=== PATIENT | female | born 1945 | race Caucasian/White ===

== ENCOUNTER 2017-12-12 18:02 | Emergency (ER) | payer OTHER ==
[~2017-12-12] VITALS: Ht 157.5 cm; Wt 97.0 kg
[~2017-12-12 18:02] MED LIST: ADULT LOW DOSE81 M1 PO; CALTRATE 6001 TABLE1 PO; CENTRUM SILVER1 EAC3 PO; CRESTOR10 MG PO; DIOVAN HCT 11 TABLET PO; FISH OIL SOFTG1 EAC2 PO; KEFLEX500 MG PO; LOW DOSE ASPIRI81 M1 PO; NASACORT AQ16.5 GM BOTH NARES; NORVASC5 MG PO; PREMPRO 0.31 TABLET PO; PULMICORT FLE180 MCG IH; PULMICORT FLEX90 MCG IH; PULMICORT180 MICROG; TRIAMCINOLONE16.5 GM; VALSARTAN-HCTZ1 EAC1 PO; VENTOLIN HFA18 GM IH; VITAMIN D400 UNI4 PO
[2017-12-12 20:15] LABS: HEMATOCRIT 38.3 % (36.0-46.0); MCH 31.7 PG (29.0-34.0); MCHC 33.9 G/DL (30.0-36.0); MCV 93.4 FL (83-99); PLATELET COUNT 276 K/uL (156-360); RBC DIS.WIDTH-CV 12.7 % (11.8-14.6); RBC DIS.WIDTH-SD 43.7 % (39-53); WHITE BLOOD COUNT 10.8 K/uL (4.1-10.2)
[2017-12-12 20:36] LABS: TROP-I INTERPRETATION NEGATIVE; TROPONIN-I < 0.01 ng/mL (0.0-0.30)
[2017-12-12 20:43] LABS: CHLORIDE 99 MEQ/L (99-109); CREATININE 0.7 MG/DL (0.6-1.3); GFR ESTIMATE (CALCULATED) > 59 mL/min/; GLUCOSE 112 mg/dL (70-99); POTASSIUM 3.5 MEQ/L (3.7-5.4); SODIUM 135 MEQ/L (136-147); UREA NITROGEN (BUN) 11 mg/dL (9-23)
[2017-12-12] MEDS ORDERED: ULTRAM50 MG PO (21:31)
[2017-12-12 22:56] LABS: APPEARANCE CLOUDY ((CLEAR)); BILIRUBIN NEGATIVE; BLOOD MODERATE; COLOR YELLOW ((YELLOW)); GLUCOSE (STRIP) NEGATIVE; KETONES 5; LEUKOCYTES LARGE; NITRITE NEGATIVE; PROTEIN (STRIP) NEGATIVE; SPECIFIC GRAVITY 1.014 (1.000-1.030); UROBILINOGEN 0.2 MG/DL (0.2-1.0)
[2017-12-12 23:16] LABS: BACTERIA 2+ /HPF; EPITHELIAL CELLS 1+ /HPF; MUCUS 3+ /LPF; UCUL ADDED? YES; WHITE BLOOD CELLS 40-50 /HPF (0-5)
[2017-12-13] MEDS ORDERED: KEFLEX500 MG PO (00:50)
[2017-12-13 01:07] VITALS: BP 123/67
== END 2017-12-13 01:09 | disposition home or self-care (01) ==
LOC: EME 18:02
PROVIDERS: Physician Assistant
DX: R55 Syncope and collapse (principal); S82.891D Other fracture of right lower leg, subsequent encounter for closed fracture with routine healing; N39.0 Urinary tract infection, site not specified; I50.9 Heart failure, unspecified; I11.0 Hypertensive heart disease with heart failure; E78.5 Hyperlipidemia, unspecified; J45.909 Unspecified asthma, uncomplicated; Z88.2 Allergy status to sulfonamides; Z88.5 Allergy status to narcotic agent
CPT/HCPCS: 71046; 80048; 81003; 84484; 85027; 87086; 87502; 93005; 99281; 99284; J7030